=== PATIENT | female | born 1970 | race Caucasian/White ===

== ENCOUNTER → 2025-02-12 09:25 | Outpatient (REF) | payer OTHER, SELFPAY | LOC: HWRAD 09:25 | PROVIDERS: ATTENDING PHYSICIAN Family Medicine | DX: J32.0 Chronic maxillary sinusitis (principal) | CPT/HCPCS: 70486 ==

== ENCOUNTER 2025-03-27 06:18 | Day surgery (SDC) | payer OTHER, SELFPAY ==
[2025-03-14 11:17] LABS: Hematocrit 39.6 % (37.0-47.0); Hemoglobin 13.3 g/dL (12.0-16.0); Mean Corp Hgb Conc. 33.6 g/dL (33.0-37.0); Mean Corpuscular Hgb 31.8 pg (27.0-31.0); Mean Corpuscular Volume 94.7 fL (81.0-99.0); Mean Platelet Volume 9.4 fL (7.4-10.4); Platelet Count 368 10^3/uL (130-400); Red Blood Cell Count 4.18 10^6/uL (4.20-5.40); Red Cell Dist. Width 13.2 % (11.5-14.5); White Blood Cell Count 8.2 10^3/uL (4.8-10.8)
[2025-03-14 13:19] LABS: ALT (SGPT) 17 U/L (0-35); AST (SGOT) 24 U/L (14-36); Albumin 4.3 g/dl (3.5-5.0); Alkaline Phosphatase 70 U/L (38-126); Blood Urea Nitrogen 15 mg/dl (7-17); Carbon Dioxide 27 mmol/L (22-30); Chloride 104 mmol/L (98-107); Glucose 76 mg/dl (70-99); Potassium 4.8 mmol/L (3.5-5.1); Sodium 141 mmol/L (135-145); Total Bilirubin 0.7 mg/dl (0.2-1.3); Total Protein 6.7 g/dl (6.3-8.2); eGFR > 60.00
[2025-03-14 13:40] VITALS: BMI 28.2
[2025-03-27] VITALS (10 sets, daily range): BP systolic 117–155; BP diastolic 71–99; BMI 28.2
[2025-03-27] MEDS: NORMOSOL-R/PLASMALYTE-A 1000 IV (07:45)
[2025-03-27] MEDS: ZOFRAN 4 MG IV (10:12)
[2025-03-27] MEDS: DILAUDID 0.5 MG IV (10:14)
[2025-03-27] MEDS: DILAUDID 0.25 MG IV (10:34)
== END 2025-03-27 11:45 | disposition home or self-care (01) ==
LOC: SDS 06:18
PROVIDERS: ATTENDING PHYSICIAN Otolaryngology; FAMILY PHYSICIAN Family Medicine
DX: J32.9 Chronic sinusitis, unspecified (principal)
CPT/HCPCS: 31254; 31267; 88304; 88311; 88312; 36415; 80053; 85027; 93005